=== PATIENT | male | born 1945 | race Caucasian/White ===

== ENCOUNTER 2021-11-06 12:01 | Day surgery (SDC) | payer MEDICARE, BC ==
[~2021-11-06] VITALS: Ht 177.8 cm; Wt 86.4 kg
[~2021-11-06 12:01] MED LIST: ATOR20 PO; Aspir 8181 MG PO; CYCL0.05OP; DOXA1 PO; ENBREL50 MG/1 M2 SC; FEBU40TA PO; FOLIC ACID0.8 MG PO; HYDRA25 PO; IRBESARTAN-HCT1 EAC2 PO; METO25 PO; MULTIVITAMINS1 EAC3 PO; NORVASC10 MG PO; PANT40 PO; PRED5 PO; SODBIC650 PO
[2021-11-06] MEDS ORDERED: GLIP2.5ER PO (12:32)
[2021-11-06] MEDS ORDERED: FURO20 PO (12:32)
--- NOTE | 2021-11-06 13:34 | NUR ---
11/06/21 1334 JUDI ENGLISH History, Chart, Medications and Allergies reviewed before start of procedure. Patient confirms NPO status and agrees with scheduled surgery. 3-LEAD EKG REVIEWED WITH PHYSICIAN PRIOR TO START OF PROCEDURE. MONITOR INTACT WITH CONTINUOUS PULSE OXIMETRY AND INTERMITTENT BP. PATIENT DETERMINED TO BE ASA APPROPRIATE FOR PROPOFOL SEDATION PRIOR TO START OF PROCEDURE BY . O2 VIA NASAL CANNULA
== END 2021-11-06 23:37 | disposition home or self-care (01) ==
LOC: ORSCMMR 12:01
PROVIDERS: Student in an Organized Health Care Education/Training Program
PROC: 0DBK8ZX Excision of Ascending Colon, Via Natural or Artificial Opening Endoscopic, Diagnostic (ICD-10-PCS; principal; 2021-11-06 13:00)
PROC: 0DBN8ZX Excision of Sigmoid Colon, Via Natural or Artificial Opening Endoscopic, Diagnostic (ICD-10-PCS; principal; 2021-11-06 13:00)
DX: Z86.010 Personal history of colon polyps (principal); D12.2 Benign neoplasm of ascending colon; D12.5 Benign neoplasm of sigmoid colon; K57.30 Diverticulosis of large intestine without perforation or abscess without bleeding; K64.8 Other hemorrhoids; K64.4 Residual hemorrhoidal skin tags; I10 Essential (primary) hypertension; E78.5 Hyperlipidemia, unspecified; Z79.899 Other long term (current) drug therapy
CPT/HCPCS: 82947; 88305; J2405; J2704; J7120

== ENCOUNTER → 2024-07-12 | Outpatient (CLI) | payer MEDICARE, BC ==
[~2024-07-12] MED LIST changes: +FURO20 PO; +GLIP2.5ER PO
[2024-07-12 16:13] LABS: Automated BF RBC Count 0.003 M/mm3 (0-0); Automated BF WBC Count 0.149 K/mm3 (0-999)
[2024-07-12 16:15] LABS: Body Fluid WBC Count 149 /mm3 (0-999); RBC Count, Body Fluid 3000 /mm3 (0-0)
[2024-07-12 16:23] LABS: Appearance, Body Fluid Hazy (Clear); Color, Body Fluid Yellow (None-Yellow)
[2024-07-12 16:54] LABS: Total Cell Count, Body Fluid 100
== END ==
LOC: LAB 15:57 → LAB SHORT 15:57
PROVIDERS: Hospitalist
DX: N18.6 End stage renal disease (principal); K65.9 Peritonitis, unspecified; R18.8 Other ascites
CPT/HCPCS: 82042; 87070; 87075; 87205; 89051